=== PATIENT | female | born 1970 | race Caucasian/White ===

== ENCOUNTER → 2018-02-19 11:57 | Outpatient (CLI) | payer OTHER, SELFPAY ==
--- NOTE | 2018-02-19 | DI.MG.S_ITS ---
BILATERAL DIGITAL SCREENING MAMMOGRAM 3D/2D WITH CAD: 02/19/2018 CLINICAL: Routine screening. Comparison is made to exams dated: 01/19/2013 mammogram, 01/23/2010 mammogram, and 01/18/2010 mammogram - [facility]. The tissue of both breasts is heterogeneously dense. This may lower the sensitivity of mammography. Current study was also evaluated with a Computer Aided Detection (CAD) system. No significant masses, calcifications, or other findings are seen in either breast. There has been no significant interval change. IMPRESSION: NEGATIVE There is no mammographic evidence of malignancy. A 1 year screening mammogram is recommended. This exam was interpreted at Station ID: [id number]. NOTE: For mammograms, a report in lay terms will be sent to the patient. Approximately 15% of breast malignancies will not be visualized mammographically. In the management of a palpable breast mass, a negative mammogram must not discourage biopsy of a clinically suspicious lesion. Electronically Signed By: Prem pollock/emmanuel:02/19/2018 22:21:19 letter sent: Normal Exam ACR BI-RADS Category 1: Negative 3341F
== END ==
PROVIDERS: PCP Physician Assistant; Visit Provider Physician Assistant
DX: Z12.31 Encounter for screening mammogram for malignant neoplasm of breast (principal)
CPT/HCPCS: 77063; 77067

== ENCOUNTER → 2018-11-19 17:58 | Outpatient (CLI) | payer OTHER, SELFPAY ==
--- NOTE | 2018-11-19 18:03 | DI.RAD.S_ITS ---
PROCEDURE: XR CLAVICLE LT INDICATIONS: Left side pain after fall TECHNIQUE: 2 views of the clavicle were acquired. COMPARISON: None. FINDINGS: Bones: No fractures or dislocations. No suspicious bony lesions. Soft tissues: No suspicious soft tissue calcifications. IMPRESSION: No displaced left clavicular fracture is identified. Consider followup radiographs in 7-10 days if there is continued clinical concern. Dictated by: Prem Alexander M.D. on 11/19/2018 at 19:11 Approved by: Prem Alexander M.D. on 11/19/2018 at 19:12
--- NOTE | 2018-11-19 18:03 | DI.RAD.S_ITS ---
PROCEDURE: XR RIBS LT MIN 3V W CXR1V INDICATIONS: Left side pain after fall TECHNIQUE: 2 views of the left ribs were acquired, along with a single view chest. COMPARISON: None. FINDINGS: Surgical changes and devices: None. Bones and chest wall: No fractures or dislocations. No suspicious bony lesions. Overlying soft tissues appear unremarkable. Lungs and pleura: No pleural effusions or pneumothorax. Lungs appear clear. There is prominence of the pulmonary vasculature bilaterally. There is mild bilateral perihilar and right basilar atelectasis. Mediastinum: Mediastinal contours appear normal. Heart size is normal. IMPRESSION: 1. No displaced left rib fracture identified. Consider followup radiographs in 7-10 days if there is continued clinical concern. 2. Mild bilateral perihilar and right basilar atelectasis. Dictated by: Prem Alexander M.D. on 11/19/2018 at 19:12 Approved by: Prem Alexander M.D. on 11/19/2018 at 19:15
== END ==
PROVIDERS: Family Provider Physician Assistant; PCP Physician Assistant; Visit Provider Physician Assistant
DX: R07.81 Pleurodynia (principal); M89.8X1 Other specified disorders of bone, shoulder; W19.XXXA Unspecified fall, initial encounter; J98.11 Atelectasis
CPT/HCPCS: 71101; 73000

== ENCOUNTER → 2020-01-19 18:35 | Outpatient (ROUT) | payer OTHER, SELFPAY ==
[2020-01-19 19:04] LABS: Add Manual Diff / Slide Review NO; Basophils Absolute Auto 100 /uL (0-100); Eosinophils Absolute Auto 100 /uL (0-450); Eosinophils Percent Auto 0.9 % (2-4); Hematocrit 44.3 % (36-46); Hemoglobin 15.2 g/dL (12.0-16.0); Lymphocytes Absolute Auto 1800 /uL (1100-4500); Lymphocytes Percent Auto 27.3 % (25-40); Mean Corpuscular HGB Conc 34.3 % (30-36); Mean Corpuscular Hemoglobin 32.7 PG (26-34); Mean Corpuscular Volume 95.4 fL (80-100); Monocytes Absolute Auto 400 /uL (0-900); Monocytes Percent Auto 6.5 % (3-14); Neutrophils Absolute Auto 4300 /uL (1500-7000); Neutrophils Percent Auto 64.3 % (50-75); Platelet Count 298 X10^3/uL (150-400); Red Blood Cell Count 4.65 X10^6/uL (4.0-5.2); Red Cell Distribution Width 12.5 % (11.6-14.8); White Blood Cell Count 6.7 X10^3/uL (4.5-11.0)
[2020-01-19 19:14] LABS: Alanine Aminotransferase 20 IU/L (<35); Albumin 4.1 g/dL (3.5-5.0); Albumin Globulin Ratio 1.3 (1.0-2.8); Alkaline Phosphatase 70 U/L (38-126); Aspartate Aminotransferase 31 IU/L (14-36); BUN Creatinine Ratio 15.6 (6-22); Bilirubin Total 0.4 mg/dL (0.2-1.3); Blood Urea Nitrogen 10 mg/dL (7-17); Calcium 9.6 mg/dL (8.4-10.2); Carbon Dioxide 26 mmol/L (22-32); Chloride 102 mmol/L (98-107); Cholesterol 174 mg/dL (140-199); Estimated Glomerular Filt Rate > 60.0 mL/min (>60); Globulin 3.1 g/dL (1.7-4.1); Glucose 92 mg/dL (70-100); HDL Cholesterol 94 mg/dL (40-60); HEMOLYSIS < 15 (0-50); LDL Cholesterol Calculated 55 mg/dL (<100); Potassium 4.3 mmol/L (3.4-5.1); Sodium 137 mmol/L (137-145); Total Protein 7.2 g/dL (6.3-8.2); Triglycerides 124 mg/dL (35-150)
[2020-01-19 19:27] LABS: Vitamin D 25 Hydroxy (D3) 14.9 ng/mL (30.0-100.0)
== END ==
PROVIDERS: Family Provider Physician Assistant; PCP Physician Assistant; Visit Provider Physician Assistant
DX: E55.9 Vitamin D deficiency, unspecified (principal); Z13.220 Encounter for screening for lipoid disorders
CPT/HCPCS: 80053; 80061; 82306; 85025

== ENCOUNTER → 2020-02-27 15:44 | Outpatient (CLI) | payer OTHER, SELFPAY ==
--- NOTE | 2020-02-27 | DI.MG.S_ITS ---
BILATERAL DIGITAL SCREENING MAMMOGRAM 3D/2D WITH CAD: 02/27/2020 CLINICAL: Routine screening. Comparison is made to exams dated: 02/19/2018 mammogram - [facility], 01/19/2013 mammogram, and 01/23/2010 mammogram - [facility]. The tissue of both breasts is heterogeneously dense. This may lower the sensitivity of mammography. Current study was also evaluated with a Computer Aided Detection (CAD) system. No significant masses, calcifications, or other findings are seen in either breast. There has been no significant interval change. IMPRESSION: NEGATIVE There is no mammographic evidence of malignancy. A 1 year screening mammogram is recommended. This exam was interpreted at Station ID: [id number]. NOTE: For mammograms, a report in lay terms will be sent to the patient. Approximately 15% of breast malignancies will not be visualized mammographically. In the management of a palpable breast mass, a negative mammogram must not discourage biopsy of a clinically suspicious lesion. Electronically Signed By: Maria Elena mishra/emmanuel:02/29/2020 11:00:24 letter sent: Normal Exam ACR BI-RADS Category 1: Negative 3341F
== END ==
PROVIDERS: Family Provider Physician Assistant; PCP Physician Assistant; Referring Provider Physician Assistant; Visit Provider Physician Assistant
DX: Z12.31 Encounter for screening mammogram for malignant neoplasm of breast (principal)
CPT/HCPCS: 77063; 77067

== ENCOUNTER → 2021-05-02 12:33 | Outpatient (CLI) | payer OTHER, SELFPAY ==
[2021-05-02 13:22] LABS: COVID19 -Nasal RAPID Negative (Negative)
== END ==
PROVIDERS: Family Provider Physician Assistant; PCP Physician Assistant; Visit Provider Nurse Practitioner Family
DX: Z20.822 Contact with and (suspected) exposure to COVID-19 (principal)
CPT/HCPCS: 87635

== ENCOUNTER → 2021-07-04 09:55 | Outpatient (CLI) | payer OTHER, SELFPAY ==
--- NOTE | 2021-07-04 | DI.MG.S_ITS ---
BILATERAL DIGITAL SCREENING MAMMOGRAM 3D/2D WITH CAD: 07/04/2021 CLINICAL: Routine screening. Comparison is made to exams dated: 02/27/2020 mammogram and 02/19/2018 mammogram - [facility]. The tissue of both breasts is heterogeneously dense. This may lower the sensitivity of mammography. Current study was also evaluated with a Computer Aided Detection (CAD) system. No significant masses, calcifications, or other findings are seen in either breast. There has been no significant interval change. IMPRESSION: NEGATIVE There is no mammographic evidence of malignancy. A 1 year screening mammogram is recommended. This exam was interpreted at Station ID: [id number]. NOTE: For mammograms, a report in lay terms will be sent to the patient. Approximately 15% of breast malignancies will not be visualized mammographically. In the management of a palpable breast mass, a negative mammogram must not discourage biopsy of a clinically suspicious lesion. Electronically Signed By: Basil vargas/emmanuel:07/04/2021 13:27:33 letter sent: Normal Exam ACR BI-RADS Category 1: Negative 3341F
== END ==
PROVIDERS: Family Provider Physician Assistant; PCP Physician Assistant; Referring Provider Physician Assistant; Visit Provider Physician Assistant
DX: Z12.31 Encounter for screening mammogram for malignant neoplasm of breast (principal)
CPT/HCPCS: 77063; 77067

== ENCOUNTER → 2022-09-01 08:26 | Outpatient (CLI) | payer OTHER, SELFPAY ==
--- NOTE | 2022-09-01 08:28 | DI.MG.S_ITS ---
BILATERAL DIGITAL SCREENING MAMMOGRAM 3D/2D WITH CAD: 09/01/2022 CLINICAL: Routine screening. Comparison is made to exams dated: 07/04/2021 mammogram, 02/27/2020 mammogram, and 02/19/2018 mammogram - [facility]. Both breasts are heterogeneously dense, which may obscure small masses (category c / 51-75% glandular tissue). Current study was also evaluated with a Computer Aided Detection (CAD) system. No significant masses, calcifications, or other findings are seen in either breast. There has been no significant interval change. IMPRESSION: NEGATIVE There is no mammographic evidence of malignancy. A 1 year screening mammogram is recommended. Based on the Tyrer Cuzick model (a risk assessment model) the patient's lifetime risk is 12.5% and her 10 year risk is 3.4%. According to the ACR, ACS, and NCCN guidelines, an annual breast MRI exam along with mammogram is recommended if the patient's lifetime risk is 20% or greater. This exam was interpreted at Station ID: [id number]. NOTE: For mammograms, a report in lay terms will be sent to the patient. Approximately 15% of breast malignancies will not be visualized mammographically. In the management of a palpable breast mass, a negative mammogram must not discourage biopsy of a clinically suspicious lesion. Electronically Signed By: Tommy mackey/emmanuel:09/03/2022 07:50:01 letter sent: Normal Exam ACR BI-RADS Category 1: Negative 3341F
== END ==
PROVIDERS: Family Provider Physician Assistant; PCP Physician Assistant; Referring Provider Physician Assistant; Visit Provider Physician Assistant
DX: Z12.31 Encounter for screening mammogram for malignant neoplasm of breast (principal)
CPT/HCPCS: 77063; 77067

== ENCOUNTER → 2023-08-26 09:57 | Outpatient (CLI) | payer OTHER, SELFPAY ==
--- NOTE | 2023-08-26 09:59 | DI.CT.S_ITS ---
PROCEDURE: CT LUNG LOW DOSE SCREENING INDICATIONS: Lung cancer screen TECHNIQUE: Noncontrast 2.0-2.5 mm thick sections acquired from the pulmonary apices to the posterior costophrenic angles. 7 mm thick axial MIP, and 5 mm coronal and sagittal reformats were then acquired. For radiation dose reduction, the following was used: automated exposure control, adjustment of mA and/or kV according to patient size. COMPARISON: None. FINDINGS: Image quality: Diagnostic. Lower Neck: No enlarged lymph nodes. Thyroid: No thyroid nodules which require sonographic follow up, per consensus guidelines. Axillae: No enlarged lymph nodes. Chest Wall: Pectus deformity of the right hemithorax is noted. Bones: Unremarkable. Lungs and Pleura: No pneumothorax or pleural effusions. No consolidation or suspicious nodules. Heart: Heart size is normal. No pericardial effusion. Thoracic Vessels: The aorta and pulmonary arteries demonstrate normal size. Mediastinum and Ruth Ann: No enlarged lymph nodes. Esophagus: No wall thickening. No hiatal hernia. Upper Abdomen: Visualized upper abdomen solid organs and bowel loops appear normal. IMPRESSION: No suspicious pulmonary nodules. LUNG-RADS 1; continued annual screening, if eligible. Clinically Significant Non-pulmonary Findings: None. Dictated by: Iris Nelson M.D. on 08/26/2023 at 12:00 Approved by: Iris Nelson M.D. on 08/26/2023 at 12:09
[2023-08-26 11:20] LABS: Cholesterol 200 mg/dL (140-199); HDL Cholesterol 68 mg/dL (40-60); LDL Cholesterol Calculated 110 mg/dL (<100); Triglycerides 112 mg/dL (35-150)
== END ==
LOC: CT 09:58
PROVIDERS: Family Provider Physician Assistant; PCP Family Medicine; Referring Provider Family Medicine; Visit Provider Family Medicine
DX: Z87.891 Personal history of nicotine dependence (principal); Z12.2 Encounter for screening for malignant neoplasm of respiratory organs; Z86.39 Personal history of other endocrine, nutritional and metabolic disease; Z13.220 Encounter for screening for lipoid disorders; Z00.00 Encounter for general adult medical examination without abnormal findings
CPT/HCPCS: 36415; 71271; 80061; 82652

== ENCOUNTER → 2023-09-05 11:41 | Outpatient (CLI) | payer OTHER, SELFPAY ==
--- NOTE | 2023-09-05 11:42 | DI.MG.S_ITS ---
BILATERAL DIGITAL SCREENING MAMMOGRAM 3D/2D WITH CAD: 09/05/2023 CLINICAL: Routine screening. Comparison is made to exams dated: 09/01/2022 mammogram, 07/04/2021 mammogram, and 02/27/2020 mammogram - [facility]. Both breasts are heterogeneously dense, which may obscure small masses (category c / 51-75% glandular tissue). Current study was also evaluated with a Computer Aided Detection (CAD) system. No significant masses, calcifications, or other findings are seen in either breast. There has been no significant interval change. IMPRESSION: NEGATIVE There is no mammographic evidence of malignancy. A 1 year screening mammogram is recommended. Based on the Tyrer Cuzick model (a risk assessment model) the patient's lifetime risk is 12.3% and her 10 year risk is 3.6%. According to the ACR, ACS, and NCCN guidelines, an annual breast MRI exam along with mammogram is recommended if the patient's lifetime risk is 20% or greater. This exam was interpreted at Station ID: [id number]. NOTE: For mammograms, a report in lay terms will be sent to the patient. Approximately 15% of breast malignancies will not be visualized mammographically. In the management of a palpable breast mass, a negative mammogram must not discourage biopsy of a clinically suspicious lesion. Electronically Signed By: Iris rodrigues/emmanuel:09/05/2023 15:52:23 letter sent: Normal Exam ACR BI-RADS Category 1: Negative 3341F
== END ==
PROVIDERS: Family Provider Physician Assistant; PCP Family Medicine; Referring Provider Family Medicine; Visit Provider Family Medicine
DX: Z12.31 Encounter for screening mammogram for malignant neoplasm of breast (principal); R92.333 Mammographic heterogeneous density, bilateral breasts
CPT/HCPCS: 77063; 77067

== ENCOUNTER 2024-05-27 01:25 | Emergency (ER) | payer OTHER, SELFPAY ==
[2024-05-27 01:33] VITALS: BP 170/89; PULSE 76; RESP 17; TEMP 37.4; O2SAT 98; BMI 24.2
[2024-05-27 01:40] VITALS: PULSE 76; RESP 21; O2SAT 97
--- NOTE | 2024-05-27 01:44 | EKG_ITS ---
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
--- NOTE | 2024-05-27 01:44 | ED.GENADULT ---
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 She had left parasternal chest discomfort for the last 7 hours, that seems to be improved with stretching of her back. No associated nausea or vomiting, diaphoresis. No specific medication treatment tried. She had concerns that her blood pressure was a bit elevated, though she is also taking hzxs-atl-yaikmmh cold preparation medications. She denies cardiac risk factors of diabetes, hypertension established, hyperlipidemia, she has smoked in the past for a number of years but none for the last 2 years, and has family history of coronary artery disease. No prior coronary artery disease testing. Related Data Home Medications Medication Instructions Recorded Confirmed loratadine 10 mg tablet 10 mg PO DAILY PRN itching 07/25/23 05/22/24 Previous Rx's Medication Instructions Recorded amoxicillin 500 mg tablet 500 mg PO Q8H 7 days #21 tabs 05/22/24 benzonatate 200 mg capsule 200 mg PO BID PRN cough #30 caps 05/22/24 ipratropium bromide 21 mcg (0.03 2 spray intranasal BID PRN nasal 05/22/24 %) nasal spray congestion #30 mL Allergies Allergy/AdvReac Type Severity Reaction Status Date / Time acetaminophen [From PERCOCET] Allergy Intermediate ITCHY Verified 05/27/24 01:47 FEELING hydrocodone [HYDROCODONE] Allergy Intermediate RASH Verified 05/27/24 01:47 oxycodone [From PERCOCET] Allergy Intermediate ITCHY Verified 05/27/24 01:47 FEELING Patient History Medical History (Updated 05/27/24 @ 02:31 by Schuyler Hendricks MD) Wears glasses Fractures Human papilloma virus Hip pain, right (~2022) Hemorrhoids (~2022) Chicken pox (~1975) Cough Surgical History (Updated 09/06/23 @ 20:23 by Divine Meier) Anesthesia History of sinus surgery (~1993) Family History (Updated 09/06/23 @ 20:24 by Divine Meier) Father History of heart disease Hyperlipidemia Mother Cancer Social History Smoking Status: Former smoker Smoking Status: Former smoker Exam Narrative Exam Narrative: GENERAL: Well-developed patient, in mild distress. HEAD: Atraumatic. Normocephalic. EYES: Pupils equal round and reactive. Extraocular motions intact. No scleral icterus. No injection or drainage. ENT: Nose without bleeding, purulent drainage. Throat without erythema, tonsillar hypertrophy or exudate. Airway patent. NECK: Trachea midline. Non tender CARDIOVASCULAR: Regular rate and rhythm without murmurs, gallops, or rubs. RESPIRATORY: Clear to auscultation. Breath sounds equal bilaterally. No wheezes, rales, or rhonchi. No tenderness on palpation to left parasternal area of symptoms. No skin changes or rash changes. GASTROINTESTINAL: Abdomen soft, non-tender, nondistended. EXTREMITIES: No edema or joint tenderness. BACK: Nontender without deformity or crepitance. No flank tenderness. NEURO: AOx3. Motor functions grossly nonfocal SKIN: No rash or erythema of visible areas Initial Vital Signs Initial Vital Signs: Vital Signs Temperature 99.3 F 05/27/24 01:33 Pulse Rate 76 05/27/24 01:33 Respiratory Rate 17 05/27/24 01:33 Blood Pressure 170/89 H 05/27/24 01:33 Pulse Oximetry 98 05/27/24 01:33 Oxygen Delivery Method Room Air 05/27/24 01:33 Scores HEART Score Heart Score history: Slightly Suspicious Heart Score EKG: Normal Heart Score Age: 45-64 years old Heart Score risk factors: 1-2 risk factors Heart Score troponin: < or = to normal limit Heart Score Total: 2 Course Orders Ordered: ED Orders 05/27/24 01:44 XR chest 1V Stat Complete Blood Count AUTO DIFF Stat Comprehensive Metabolic Panel Stat Lipase Stat Troponin & CK Cardiac Panel Stat EKG-12 Lead Stat Discontinued Medications Aspirin (Aspirin 81 Mg Chew Tab) 324 mg PO NOW ONE Stop: 05/27/24 01:45 Last Admin: 05/27/24 01:49 Dose: 324 mg Sodium Chloride (Normal Saline 0.9%) 1,000 mls @ 150 mls/hr IV CONT DAYAMI Last Infusion: 05/27/24 02:38 Dose: Infused Vital Signs Vital signs: Vital Signs - 8 hr 05/27/24 01:33 05/27/24 01:40 05/27/24 02:00 Temperature 99.3 F Pulse Rate 76 76 71 Respiratory Rate 17 21 19 Blood Pressure 170/89 H Pulse Oximetry 98 97 95 Oxygen Delivery Method Room Air Room Air 05/27/24 02:00 05/27/24 02:30 05/27/24 02:30 Temperature Pulse Rate 69 Respiratory Rate 21 Blood Pressure 152/100 H 160/95 H Pulse Oximetry 96 Oxygen Delivery Method Room Air Medical Decision Making Lab Data Lab results reviewed: Yes I reviewed the patient's lab results. Lab results narrative: White blood cell count 8200, hemoglobin 15, platelets adequate. Basic metabolic panel unremarkable. Liver functions so mild transaminitis. Lipase normal. Troponin negative/unmeasurable. 05/27/24 01:42 05/27/24 01:42 Labs: Lab Results 05/27/24 Range/Units 01:42 WBC 8.2 (4.5-11.0) X10^3/uL RBC 4.65 (4.0-5.2) X10^6/uL Hgb 15.0 (12.0-16.0) g/dL Hct 43.6 (36-46) % MCV 93.8 (80-100) fL MCH 32.3 (26-34) PG MCHC 34.5 (30-36) % RDW 13.0 (11.6-14.8) % Plt Count 358 (150-400) X10^3/uL Neut % (Auto) 70.3 (50-75) % Lymph % (Auto) 21.4 L (25-40) % Benzie % (Auto) 5.0 (3-14) % Eos % (Auto) 0.6 L (2-4) % Baso % (Auto) 2.7 H (0-2) % Neut # (Auto) 5800 (7383-1429) /uL Lymph # (Auto) 1800 (3487-0557) /uL Benzie # (Auto) 400 (0-900) /uL Eos # (Auto) 100 (0-450) /uL Baso # (Auto) 200 H (0-100) /uL Sodium 135 L (137-145) mmol/L Potassium 3.9 (3.4-5.1) mmol/L Chloride 101 (98-107) mmol/L Carbon Dioxide 24 (22-32) mmol/L BUN 15 (7-17) mg/dL Creatinine 0.73 (0.52-1.04) mg/dL Estimated GFR > 60 (>60) mL/min BUN/Creatinine Ratio 20.5 (6-22) Glucose 117 H (70-100) mg/dL Calcium 9.4 (8.4-10.2) mg/dL Total Bilirubin 0.7 (0.2-1.3) mg/dL AST 48 H (14-36) IU/L ALT 46 H (<35) IU/L Alkaline Phosphatase 81 (38-126) U/L Total Creatine Kinase 88 (30-135) U/L Troponin I < 0.012 (0.01-0.034) ng/mL Total Protein 8.4 H (6.3-8.2) g/dL Albumin 4.9 (3.5-5.0) g/dL Globulin 3.5 (1.7-4.1) g/dL Albumin/Globulin Ratio 1.4 (1.0-2.8) Lipase 50 (23-300) U/L Imaging Data Chest x-ray: Radiologist's Impression: [place] [address] XRay Report Signed Patient: Sarah Guerrero MR#: [id number] : 1970 Acct:[id number] Age/Sex: 54 / F Date of Service: 05/27/24 Loc: Accession Number: [id number] Procedure: XR chest 1V Ordering Provider: Schuyler Hendricks MD PROCEDURE: XR CHEST 1V INDICATIONS: chest pain TECHNIQUE: One view of the chest was acquired. COMPARISON: None. FINDINGS: Surgical changes and devices: None. Lungs and pleura: Lungs are clear. No pleural effusions or pneumothorax. Mediastinum: Mediastinal contours appear normal. Heart size is normal. Bones and chest wall: No suspicious bony lesions. Overlying soft tissues appear unremarkable. IMPRESSION: No acute cardiopulmonary abnormality is seen. Approved by: Pamela Sabillon M.D.,Ph.D. on 05/27/2024 at 1:58 ECG Data Attestation: I personally reviewed and interpreted this ECG as follows: Interpretation: Sinus rhythm with first-degree AV block, ventricular rate 76, no obvious ST segment elevation or depression changes. DE 0-10, QRS 82, QTC 443. MDM Narrative Medical decision making narrative: 54-year-old female with recent upper respiratory and sinus congestion symptoms, taking oral amoxicillin prescribed from clinic for possible sinus infection, also taking NyQuil, concerned about blood pressure elevation and did have onset left parasternal chest discomfort about 7 hours ago that has remained constant. Chest discomfort is atypical, and in fact improves with stretching of her back, seems musculoskeletal in nature. HEART Score = 2, low risk. EKG and blood testing negative. Chest x-ray unremarkable. Initial blood pressure elevation noted, she had been taking NyQuil and may have some decongestant effect on her blood pressure. No antihypertensive medications prescribed for discharge. She would like to go home, and will seek further testing as an outpatient. She did have oral aspirin. She will continue to take aspirin daily. Given contact information for local gis developer on-call Dr. Pearson, though she was advised she might need referral from your primary care provider, who might also prefer to work with a different gis developer. Advised to contact her primary care provider later today to expedite further workup as an outpatient for now. We discussed repeat interval troponin testing, however she has had this chest discomfort for over 7 hours, with negative/unmeasurable troponin, does not likely need to be repeated, no interval/recent change in her chest discomfort. Return to this/nearest emergency department for any change worsening symptoms or any concerns prior Discharge Plan Departure Patient Disposition: Home Clinical Impression: Atypical chest pain Instructions: DI for Atypical Chest Pain Activity Restrictions/Additional Instructions: 6 or 7 hours left parasternal chest discomfort, that seems to improve with stretching like motions. No known coronary artery disease, but history of remote smoking, none for the last 2 years. No prior cardiac testing. EKG and blood test reassuring, no evidence for heart attack at this time. Symptoms did not seem typical for blood clots to the lungs. Recent sinus infection upper respiratory like infection could be related to your discomfort as well. Elevated blood pressure but you had been taking NyQuil, there could be a component of decongestant medication that might be affecting her blood pressure, no prescription antihypertensive blood pressure medication prescribed for now. Chest x-ray unremarkable. Screening labs unremarkable. You took a baby aspirin, consider taking aspirin daily until further evaluation as an outpatient. Consider seeing Cardiology as an outpatient, you might need a referral from your primary doctor, local contact information given for on-call cardiology nancy Pearson, though your primary care doctor might work with a different gis developer. Consider contacting your regular doctor next day or 2 to expedite follow up with Cardiology for further testing as an outpatient. Return to this/nearest emergency department for any change worsening symptoms or any concerns prior Prescriptions: No Action amoxicillin 500 mg tablet 500 mg PO Q8H 7 Days Qty: 21 0RF benzonatate 200 mg capsule 200 mg PO BID PRN (Reason: cough) Qty: 30 0RF ipratropium bromide 21 mcg (0.03 %) spray,non-aerosol 2 spray intranasal BID PRN (Reason: nasal congestion) Qty: 30 0RF Rx Instructions: administer into each nostril loratadine 10 mg tablet 10 mg PO DAILY PRN (Reason: itching) Referrals: Felicity Correia DO [Physician] - Nelia Almanzar DO [Primary Care Provider] - Stand Alone Forms: Patient Portal/API/Survey
[2024-05-27] MEDS: ASPIRIN 81 MG CHEW TAB 324 MG PO (01:49)
[2024-05-27] MEDS: SODIUM CHLORIDE 0.9% 1,000 ML 150 ML IV (01:53)
[2024-05-27 01:56] LABS: Add Manual Diff / Slide Review NO; Basophils Absolute Auto 200 /uL (0-100); Basophils Percent Auto 2.7 % (0-2); Eosinophils Absolute Auto 100 /uL (0-450); Eosinophils Percent Auto 0.6 % (2-4); Hematocrit 43.6 % (36-46); Lymphocytes Absolute Auto 1800 /uL (1100-4500); Lymphocytes Percent Auto 21.4 % (25-40); Mean Corpuscular HGB Conc 34.5 % (30-36); Mean Corpuscular Hemoglobin 32.3 PG (26-34); Mean Corpuscular Volume 93.8 fL (80-100); Monocytes Absolute Auto 400 /uL (0-900); Neutrophils Absolute Auto 5800 /uL (1500-7000); Neutrophils Percent Auto 70.3 % (50-75); Platelet Count 358 X10^3/uL (150-400); Red Blood Cell Count 4.65 X10^6/uL (4.0-5.2); White Blood Cell Count 8.2 X10^3/uL (4.5-11.0)
[2024-05-27 01:59] LABS: Alanine Aminotransferase 46 IU/L (<35); Albumin 4.9 g/dL (3.5-5.0); Albumin Globulin Ratio 1.4 (1.0-2.8); Alkaline Phosphatase 81 U/L (38-126); Aspartate Aminotransferase 48 IU/L (14-36); BUN Creatinine Ratio 20.5 (6-22); Bilirubin Total 0.7 mg/dL (0.2-1.3); Blood Urea Nitrogen 15 mg/dL (7-17); Calcium 9.4 mg/dL (8.4-10.2); Carbon Dioxide 24 mmol/L (22-32); Chloride 101 mmol/L (98-107); Creatine Kinase 88 U/L (30-135); Estimated Glomerular Filt Rate > 60 mL/min (>60); Globulin 3.5 g/dL (1.7-4.1); Glucose 117 mg/dL (70-100); HEMOLYSIS < 15 (0-50); Lipase 50 U/L (23-300); Potassium 3.9 mmol/L (3.4-5.1); Sodium 135 mmol/L (137-145); Total Protein 8.4 g/dL (6.3-8.2)
[2024-05-27 02:00] VITALS: BP 152/100; PULSE 71; RESP 19; O2SAT 95
[2024-05-27 02:11] LABS: Troponin I < 0.012 ng/mL (0.01-0.034)
[2024-05-27 02:30] VITALS: BP 160/95; PULSE 69; RESP 21; O2SAT 96
== END 2024-05-27 02:38 | disposition home or self-care (01) ==
PROVIDERS: Emergency Provider Emergency Medicine; Family Provider Physician Assistant; PCP Family Medicine
DX: R07.89 Other chest pain (principal); I44.0 Atrioventricular block, first degree; Z87.891 Personal history of nicotine dependence; Z82.49 Family history of ischemic heart disease and other diseases of the circulatory system
CPT/HCPCS: 36415; 71045; 80053; 82550; 83690; 84484; 85025; 93005; 96360; 99284

== ENCOUNTER → 2024-09-22 15:28 | Outpatient (CLI) | payer OTHER, SELFPAY ==
--- NOTE | 2024-09-22 15:29 | DI.MG.S_ITS ---
MM screening mammo BI: 09/22/2024. BI-RADS: 1 CLINICAL: 54-year old female for bilateral screening mammogram. Tyrer-Cuzick lifetime risk of 8.7%. No personal or first-degree family history of breast cancer. PRIOR EXAMS 09/05/2023, 09/01/2022, 07/04/2021, 02/27/2020, 02/19/2018. MAMMOGRAPHY TECHNIQUE: 2D and 3D (tomosynthesis) digital mammographic views obtained, with additional images as needed for full coverage. Current study was also evaluated with a Computer Aided Detection (CAD) system. DENSITY C. The breasts are heterogeneously dense, which may obscure small masses. MAMMOGRAPHY FINDINGS Bilateral: No suspicious mass, asymmetry, microcalcification, or other abnormality seen. IMPRESSION: * No evidence of malignancy. RECOMMENDATIONS Bilateral * Annual screening mammography. OVERALL ASSESSMENT CATEGORY BI-RADS-1: Negative. The [employer] recommends annual screening mammography beginning at age 40 for women with average risk of breast cancer. ELECTRONICALLY SIGNED: Tommy Sparrow M.D. on 09/23/2024 at 11:19:03 AM PT Interpreting Station ID: [id number]
== END ==
PROVIDERS: Family Provider Physician Assistant; PCP Family Medicine; Referring Provider Family Medicine; Visit Provider Family Medicine
DX: Z12.31 Encounter for screening mammogram for malignant neoplasm of breast (principal); R92.333 Mammographic heterogeneous density, bilateral breasts
CPT/HCPCS: 77063; 77067